=== PATIENT | female | born 1940 | race Asian ===

== ENCOUNTER 2023-08-22 08:58 | Day surgery (SDC) | payer OTHER, MEDICARE ==
[2023-08-20 15:55] VITALS: BMI 22.8
[2023-08-22] MEDS ORDERED: TROPICAMIDE 1% OPHTH SOLN 15 ML BOTTLE ONE (09:08)
[2023-08-22] MEDS ORDERED: CYCLOPENTOLATE 2% OPHTH SOLN 2 ML BOTTLE ONE (09:08)
[2023-08-22] MEDS ORDERED: CIPROFLOXACIN HCL 0.3% OPHTH 2.5ML BOTTLE ONE (09:08)
[2023-08-22] MEDS ORDERED: PHENYLEPHRINE 2.5% OPTHALMIC DROP 2ML BOTTLE ONE (09:08)
[2023-08-22 09:36] VITALS: BP 195/111; PULSE 84; RESP 18; TEMP 97.3
[2023-08-22] MEDS ORDERED: CARBACHOL 0.01% INTRA-OCULAR 1.5 ML VIAL ONE (09:58)
[2023-08-22] MEDS ORDERED: BSS (NA/CA/MG/K) BALANCED SALT SOLUTION OPHTH SOLN 15 ML BOTTLE ONE (09:58)
[2023-08-22] MEDS ORDERED: TETRACAINE 0.5% OPHTH SOLN 2 ML BOTTLE ONE (09:58)
[2023-08-22] MEDS ORDERED: LIDOCAINE 1% P/F 10 MG/ML VIAL ONE (09:58)
[2023-08-22] MEDS ORDERED: NEO/POLYMYX B SULF/DEXAMETH OPHTHALMIC 5ML BOTTLE ONE (09:58)
== END 2023-08-22 10:15 | disposition home or self-care (01) ==
LOC: FASU 08:58
PROVIDERS: ATTEND Ophthalmology
PROC: 08RJ3JZ Replacement of Right Lens with Synthetic Substitute, Percutaneous Approach (ICD-10-PCS; principal; 2023-08-22)
DX: Z53.01 Procedure and treatment not carried out due to patient smoking (principal); H26.8 Other specified cataract

== ENCOUNTER 2023-08-29 10:41 | Day surgery (SDC) | payer OTHER, MEDICARE ==
[2023-08-27 07:45] VITALS: BMI 22.8
[2023-08-29] MEDS ORDERED: TETRACAINE 0.5% OPHTH SOLN 2 ML BOTTLE ONE (10:49)
[2023-08-29] MEDS ORDERED: BSS (NA/CA/MG/K) BALANCED SALT SOLUTION OPHTH SOLN 15 ML BOTTLE ONE (10:49)
[2023-08-29] MEDS ORDERED: NEO/POLYMYX B SULF/DEXAMETH OPHTHALMIC 5ML BOTTLE ONE (10:49)
[2023-08-29] MEDS ORDERED: LIDOCAINE 1% P/F 10 MG/ML VIAL ONE (10:49)
[2023-08-29] MEDS ORDERED: CARBACHOL 0.01% INTRA-OCULAR 1.5 ML VIAL ONE (10:49)
[2023-08-29] MEDS ORDERED: MIDAZOLAM HCL 2 MG/2 ML SINGLE DOSE VIAL ONE (11:00)
[2023-08-29] MEDS ORDERED: TROPICAMIDE 1% OPHTH SOLN 15 ML BOTTLE ONE (11:10)
[2023-08-29] MEDS ORDERED: CIPROFLOXACIN HCL 0.3% OPHTH 2.5ML BOTTLE ONE (11:10)
[2023-08-29] MEDS ORDERED: CYCLOPENTOLATE 2% OPHTH SOLN 2 ML BOTTLE ONE (11:10)
[2023-08-29] MEDS ORDERED: PHENYLEPHRINE 2.5% OPTHALMIC DROP 2ML BOTTLE ONE (11:10)
[2023-08-29] MEDS ORDERED: CIPROFLOXACIN HCL 0.3% OPHTH 2.5ML BOTTLE OD ONE ×3 (11:25→11:35)
[2023-08-29] MEDS ORDERED: TROPICAMIDE 1% OPHTH SOLN 15 ML BOTTLE OD ONE ×3 (11:25→11:35)
[2023-08-29] MEDS ORDERED: PHENYLEPHRINE 2.5% OPTHALMIC DROP BOTTLE OD ONE ×3 (11:25→11:35)
[2023-08-29] MEDS ORDERED: CYCLOPENTOLATE 2% OPHTH SOLN 2 ML BOTTLE OD ONE ×3 (11:25→11:35)
[2023-08-29 13:04] VITALS: BP 148/82; PULSE 74; RESP 16; TEMP 97.3
== END 2023-08-29 13:26 | disposition home or self-care (01) ==
LOC: FASU 10:41
PROVIDERS: ATTEND Ophthalmology
PROC: 08RJ3JZ Replacement of Right Lens with Synthetic Substitute, Percutaneous Approach (ICD-10-PCS; principal; 2023-08-29 12:34)
DX: H26.8 Other specified cataract (principal); H21.541 Posterior synechiae (iris), right eye
CPT/HCPCS: 66982; V2632

== ENCOUNTER 2023-10-03 08:14 | Day surgery (SDC) | payer OTHER, MEDICARE ==
[2023-10-01 15:49] VITALS: BMI 22.8
[2023-10-03] MEDS: CYCLOPENTOLATE 2% OPHTH SOLN 2 ML BOTTLE ONE ×3 (08:40→08:50)
[2023-10-03] MEDS: PHENYLEPHRINE 2.5% OPTHALMIC DROP 2ML BOTTLE ONE ×3 (08:40→08:50)
[2023-10-03] MEDS: CIPROFLOXACIN HCL 0.3% OPHTH 2.5ML BOTTLE ONE ×3 (08:40→08:50)
[2023-10-03] MEDS: TROPICAMIDE 1% OPHTH SOLN 15 ML BOTTLE ONE ×3 (08:40→08:50)
[2023-10-03 08:43] VITALS: RESP 16
[2023-10-03] MEDS ORDERED: TETRACAINE 0.5% OPHTH SOLN 2 ML BOTTLE ONE (10:20)
[2023-10-03] MEDS ORDERED: LIDOCAINE 1% P/F 10 MG/ML VIAL ONE (10:20)
[2023-10-03] MEDS ORDERED: BSS (NA/CA/MG/K) BALANCED SALT SOLUTION OPHTH SOLN 15 ML BOTTLE ONE (10:20)
[2023-10-03] MEDS ORDERED: NEO/POLYMYX B SULF/DEXAMETH OPHTHALMIC 5ML BOTTLE ONE (10:20)
[2023-10-03] MEDS ORDERED: CARBACHOL 0.01% INTRA-OCULAR 1.5 ML VIAL ONE (10:20)
[2023-10-03] MEDS ORDERED: MIDAZOLAM HCL 2 MG/2 ML SINGLE DOSE VIAL ONE (11:25)
[2023-10-03 13:22] VITALS: BP 130/68; PULSE 70; TEMP 97.5
== END 2023-10-03 12:12 | disposition home or self-care (01) ==
LOC: FASU 08:14
PROVIDERS: ATTEND Ophthalmology
PROC: 08RK3JZ Replacement of Left Lens with Synthetic Substitute, Percutaneous Approach (ICD-10-PCS; principal; 2023-10-03 11:30)
DX: H26.8 Other specified cataract (principal)
CPT/HCPCS: 66984; V2632